=== PATIENT | male | born 1985 | race Caucasian/White ===

== ENCOUNTER 2022-08-10 06:35 | Emergency (ER) | payer SELFPAY ==
[~2022-08-10] VITALS: Ht 177.8 cm; Wt 156.8 kg
[2022-08-10 08:04] LABS: BASO % 0.2 % (0.0-2.0); EOS # 0.1 K/mm3 (0.0-0.7); EOS % 0.9 % (0.0-4.0); GRAN # 9.6 K/mm3 (1.4-6.5); HEMATOCRIT 49.4 % (42.0-52.0); HEMOGLOBIN 16.7 g/dl (13.5-18.0); LYMPH # 1.1 K/mm3 (1.2-3.4); LYMPH % 9.6 % (20.0-51.0); MEAN CELL VOLUME 90 fl (80.0-100.0); MEAN CORPUSCULAR HEMOGLOBIN 30 pg (27-31); MEAN CORPUSCULAR HGB CONC 34 g/dl (33.0-37.0); MEAN PLATELET VOLUME 9.5 fl (7.4-10.4); MONO # 0.7 K/mm3 (0.1-0.6); PLATELET COUNT 192 K/mm3 (130-400); RED BLOOD COUNT 5.52 M/mm3 (4.20-5.60); REDCELL DISTRIBUTION WIDTH-CV 12.3 % (11.5-14.5)
[2022-08-10 08:17] LABS: ALBUMIN 3.7 gm/dL (3.5-5.0); BILIRUBIN,TOTAL 0.4 mg/dL (0.2-1.2); CALCIUM 8.7 mg/dL (8.4-10.2); CREATININE, serum 1.1 mg/dL (0.72-1.25); POTASSIUM 3.8 mmol/L (3.5-4.5); TOTAL PROTEIN 7.5 gm/dL (6.2-8.1)
[2022-08-10] MEDS ORDERED: PERCOCET 325 MG1 TA2 PO (10:02)
[2022-08-10] MEDS ORDERED: BACTRIM DS 8001 TAB PO (10:02)
[2022-08-10] MEDS ORDERED: CEPHALEXIN500 M1 PO (10:02)
[2022-08-10 10:30] VITALS: BP 101/70; PULSE 85; TEMP 98.5
== END 2022-08-10 10:30 | disposition home or self-care (01) ==
LOC: COL.ER 06:35
PROVIDERS: Personal Emergency Response Attendant
DX: L03.116 Cellulitis of left lower limb (principal); D72.829 Elevated white blood cell count, unspecified
CPT/HCPCS: J0696; J2405; J7030